=== PATIENT | female | born 1980 | race Caucasian/White ===

== ENCOUNTER 2017-11-19 13:57 | Emergency (ER) | payer MEDICARE ==
[2017-11-19] MEDS ORDERED: ACETAMINOPHEN 500 MG TABLET PO (14:15)
[2017-11-19 14:23] LABS: URINE HCG POC HCG NEGATIVE (Negative)
[2017-11-19] MEDS: DOXYCYCLINE HYCLATE 100 MG TABLET PO (14:35)
== END 2017-11-19 14:53 | disposition left against medical advice (07) ==
LOC: ER 13:57
DX: J32.0 Chronic maxillary sinusitis (principal); G89.29 Other chronic pain; M79.7 Fibromyalgia; F41.9 Anxiety disorder, unspecified; F31.9 Bipolar disorder, unspecified; Z88.0 Allergy status to penicillin; Z59.0 Homelessness
CPT/HCPCS: 81025; 99283-25; 99284-25

== ENCOUNTER 2021-10-25 02:09 | Emergency (ER) | payer MEDICAID, MEDICARE, OTHER ==
[~2021-10-25] VITALS: Ht 162.6 cm; Wt 87.7 kg
[~2021-10-25 02:09] MED LIST: ALPR1TAB2 PO; ARIP5TAB13 PO; AZIT250T6 PO; CETI10TA74 PO; DOXY100T PO; FLUO40CA9 PO; FLUT9.9S NS; HYDR1TAB16 PO; LITH150C PO; MONT4GRA PO; PRED20TA PO; TOPI50TA38 PO
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
[2021-10-25] MEDS ORDERED: DEXAMETHASONE SOD PHOS 4 MG/ML VIAL IM ONE (04:00)
[2021-10-25 04:30] VITALS: BP 115/65
[2021-10-25] MEDS ORDERED: AMOX875T PO (04:40)
[2021-10-25] MEDS ORDERED: HYDR-2761 PO (04:40)
== END 2021-10-25 04:50 | disposition home or self-care (01) ==
LOC: ER 02:09
DX: J02.0 Streptococcal pharyngitis (principal); B95.0 Streptococcus, group A, as the cause of diseases classified elsewhere; G89.29 Other chronic pain; F17.200 Nicotine dependence, unspecified, uncomplicated; Z88.0 Allergy status to penicillin
CPT/HCPCS: 87880; 96372; 99283; J1100